=== PATIENT | male | born 1995 | race Caucasian/White ===

== ENCOUNTER 2021-03-08 11:44 | Emergency (ER) | payer SELFPAY ==
--- NOTE | 2021-03-08 12:35 | NUR ---
SEE PT CHART FOR TRIAGE ASSESSMENT.
--- NOTE | 2021-03-08 12:42 | NUR ---
DR. ABRAHAM BEDSIDE EVALUATING PT
[2021-03-08] MEDS ORDERED: ACETAMINOPHEN EXTRA STRENGTH 500 MG TAB ONE (12:44)
[2021-03-08] MEDS ORDERED: ACETAMINOPHEN EXTRA STRENGTH 500 MG TAB PO ONE (12:45)
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
--- NOTE | 2021-03-08 12:50 | NUR ---
PT TAKEN TO CT VIA [facility].
--- NOTE | 2021-03-08 12:50 | NUR ---
Maisha townsend in [facility] - 03/08/21 at [email or web address] PT TAKEN TO [facility].
--- NOTE | 2021-03-08 12:57 | NUR ---
PT RETURNED TO BED FROM CT [facility]IA [facility]
[2021-03-08] MEDS ORDERED: ONDA-24 SL (13:24)
[2021-03-08] MEDS ORDERED: NAPR-54 PO (13:24)
[2021-03-08 13:53] VITALS: BP 113/98
--- NOTE | 2021-03-08 13:54 | NUR ---
Patient discharged with v/s stable. Written and verbal after care instructions given and explained. Patient alert, oriented and verbalized understanding of instructions. Wheel Chair Assisted with steady gait. All questions addressed prior to discharge. ID band removed. Patient advised to follow up with PMD. Rx of NAPROXEN 500 MG PO BID PRN FOR PAIN AND ZOFRAN 4 MG 1 TAB [id number] FOR VOMITTING given. Patient educated on indication of medication including possible reaction and side effects. Opportunity to ask questions provided and answered.
== END 2021-03-08 13:49 | disposition home or self-care (01) ==
LOC: MED 11:44
DX: S09.90XA Unspecified injury of head, initial encounter (principal); R07.89 Other chest pain; Z79.899 Other long term (current) drug therapy; Y04.2XXA Assault by strike against or bumped into by another person, initial encounter; Y93.89 Activity, other specified; Y92.89 Other specified places as the place of occurrence of the external cause; Y99.8 Other external cause status
CPT/HCPCS: 70450; 71045; 99284